=== PATIENT | female | born 1955 | race Caucasian/White ===

== ENCOUNTER 2020-07-18 15:55 | Observation (INO) | payer MEDICARE, BC ==
[2020-07-18 16:22] LABS: HEMOGLOBIN A1C 7.6 % (4.8-5.6)
[2020-07-18 16:30] LABS: CHLORIDE,CL 97 mEq/L (98-106); SODIUM,NA 136 mEq/L (136-145)
[2020-07-18] MEDS ORDERED: Ondansetron 4 MG Tab.DIS PO PRN (17:12)
[2020-07-18] MEDS ORDERED: Sodium Chloride 0.9% 10 ML Syringe FLUSH PRN (17:12)
[2020-07-18] MEDS ORDERED: Ondansetron 4 MG/2 ML SDV IV PRN (17:12)
[2020-07-18] MEDS ORDERED: Insulin Lispro 100 Units/ML 3 ML Vial SUBCUT SCH (17:30)
[2020-07-18] MEDS: Sodium Chloride 0.9% 1,000 ML IV SCH (18:01)
[2020-07-18] MEDS: Acetaminophen 325 MG Tab PO PRN (19:54)
[2020-07-18] MEDS: Insulin Glarg,Human.Rec.Analog 100 Unit/ML SUBCUT SCH (21:15)
[2020-07-18] MEDS ORDERED: PRAVASTATIN 40 MG PO SCH (21:30)
[2020-07-18] MEDS: Ibuprofen 200 MG Tab PO PRN (22:17)
[2020-07-19] MEDS: Acetaminophen 325 MG Tab PO PRN (00:39)
[2020-07-19] MEDS: Sodium Chloride 0.9% 1,000 ML IV SCH ×2 (02:12→09:39)
[2020-07-19] MEDS: Ibuprofen 200 MG Tab PO PRN (07:54)
[2020-07-19] MEDS ORDERED: HYDROCHLOROTHIAZIDE PO SCH (08:00)
[2020-07-19] MEDS ORDERED: BISOPROLOL PO SCH (08:00)
[2020-07-19] MEDS ORDERED: PRAVASTATIN 40 MG PO SCH (08:00)
[2020-07-19] MEDS ORDERED: Simvastatin 10 MG Tab PO SCH (08:00)
[2020-07-19] MEDS ORDERED: Non-Formulary Medication 1 Each (Insulin Aspart [Novolog] 10 UNITS) SQ SCH (08:00)
--- NOTE | 2020-07-19 08:48 | PCM.PN ---
- General Info Date of Service: 07/19/20 Admission Dx/Problem (Free Text): Margi is a 64 yo female who was admitted to the hospital yesterday evening with left low back pain and elevated creatinine level. No H&P is in chart at this time. However, patient states she did have back discomfort starting last week and has been present since. States she started to have nausea and vomiting over the weekend. States she also started having diarrhea over the weekend as well. Denies any recent antibiotic use. Admits she did see chiropractor on two occasions since onset and didn't see any relief. States she has been alternating 500mg of Tylenol with 400mg of ibuprofen every 2 hours since onset. States it did help with the pain. States she didn't eat much the last few days as she had a decreased appetite and felt she would just throw it up. Admits she has not been drinking a lot but was able to keep a sprite down last night. No diarrhea since admission. No vomiting. Patient states she did have uterine cancer 5 years ago and has been clear since. States she did have a PET scan this fall and everything looked good. Questions if the scar tissue from surgery could be causing some problems. Subjective Update: Patient states today she is feeling a lot better. States nurse did tap on her back this morning and had extreme pain only on the left side. States since then she doesn't have any discomfort at this time. Has been able to eat some breakfast and is working on increasing fluid intake. Functional Status: Reports: Pain Controlled, Tolerating Diet, Ambulating, Urinating. Denies: New Symptoms - Review of Systems General: Reports: Fever, Fatigue HEENT: Reports: No Symptoms Pulmonary: Reports: No Symptoms Cardiovascular: Reports: No Symptoms Gastrointestinal: Denies: Abdominal Pain, Constipation, Diarrhea, Hematochezia, Melena, Nausea, Vomiting Genitourinary: Reports: Flank Pain. Denies: Dysuria Musculoskeletal: Reports: No Symptoms Skin: Reports: No Symptoms Neurological: Reports: No Symptoms - Patient Data Vitals - Most Recent: Last Vital Signs Temp 100.3 F 07/19/20 07:54 Pulse 62 07/19/20 04:35 Resp 16 07/19/20 04:35 BP 105/49 L 07/19/20 04:35 Pulse Ox 97 07/19/20 04:35 Weight - Most Recent: 233 lb I&O - Last 24 Hours: Intake & Output 07/18/20 07/19/20 07/19/20 22:59 06:59 14:59 Intake Total 400 1300 Output Total 250 200 Balance 150 1100 Lab Results Last 24 Hours: Laboratory Results - last 24 hr 07/18/20 07/18/20 07/18/20 Range/Units 16:05 16:05 16:05 WBC 6.2 (5.0-10.0) 10^3/uL RBC 4.36 (4.00-5.50) 10^6/uL Hgb 13.1 (12.0-16.0) g/dL Hct 39.8 (37.0-47.0) % MCV 91.3 (82.0-94.0) fL MCH 30.0 (27.0-32.0) pg MCHC 32.9 L (33.0-38.0) g/dL RDW Coeff of Charan 13.0 (11.0-15.0) % Plt Count 261 (150-400) 10^3/uL Neut % (Auto) 76.7 (35-85) % Lymph % (Auto) 13.8 (10-55) % [place] % (Auto) 8.9 (0-16) % Eos % (Auto) 0.3 (0-5) % Baso % (Auto) 0.3 (0-3) % Neut # (Auto) 4.74 (1.80-7.00) 10^3/uL Lymph # (Auto) 0.85 L (1.00-4.80) 10^3/uL [place] # (Auto) 0.55 (0.00-0.80) 10^3/uL Eos # (Auto) 0.02 (0.00-0.45) 10^3/uL Baso # (Auto) 0.02 10^3/uL Sodium 136 (136-145) mEq/L Potassium 3.9 (3.5-5.0) mEq/L Chloride 97 L (98-106) mEq/L Carbon Dioxide 28 (21-32) mmol/L BUN 33 H (7-18) mg/dL Creatinine 2.6 H* D (0.6-1.0) mg/dL Est Cr Clr Drug Dosing TNP Estimated GFR (MDRD) 18 L (>=60) mL/min Glucose 274 H D (75-99) mg/dL POC Glucose (75-105) mg/dl Hemoglobin A1c 7.6 H (4.8-5.6) % Lactic Acid (0.4-2.0) mmol/L Calcium 9.2 (8.4-10.1) mg/dL Total Bilirubin (0.0-1.0) mg/dL AST (15-37) U/L ALT (12-78) U/L Alkaline Phosphatase (46-116) U/L C-Reactive Protein 22.0 H (0.2-0.8) mg/dL Total Protein (6.4-8.2) g/dL Albumin (3.4-5.0) g/dL 07/18/20 07/18/20 07/18/20 Range/Units 16:05 17:44 21:10 WBC (5.0-10.0) 10^3/uL RBC (4.00-5.50) 10^6/uL Hgb (12.0-16.0) g/dL Hct (37.0-47.0) % MCV (82.0-94.0) fL MCH (27.0-32.0) pg MCHC (33.0-38.0) g/dL RDW Coeff of Charan (11.0-15.0) % Plt Count (150-400) 10^3/uL Neut % (Auto) (35-85) % Lymph % (Auto) (10-55) % [place] % (Auto) (0-16) % Eos % (Auto) (0-5) % Baso % (Auto) (0-3) % Neut # (Auto) (1.80-7.00) 10^3/uL Lymph # (Auto) (1.00-4.80) 10^3/uL [place] # (Auto) (0.00-0.80) 10^3/uL Eos # (Auto) (0.00-0.45) 10^3/uL Baso # (Auto) 10^3/uL Sodium (136-145) mEq/L Potassium (3.5-5.0) mEq/L Chloride (98-106) mEq/L Carbon Dioxide (21-32) mmol/L BUN (7-18) mg/dL Creatinine (0.6-1.0) mg/dL Est Cr Clr Drug Dosing Estimated GFR (MDRD) (>=60) mL/min Glucose (75-99) mg/dL POC Glucose 237 H 111 H (75-105) mg/dl Hemoglobin A1c (4.8-5.6) % Lactic Acid 1.5 (0.4-2.0) mmol/L Calcium (8.4-10.1) mg/dL Total Bilirubin (0.0-1.0) mg/dL AST (15-37) U/L ALT (12-78) U/L Alkaline Phosphatase (46-116) U/L C-Reactive Protein (0.2-0.8) mg/dL Total Protein (6.4-8.2) g/dL Albumin (3.4-5.0) g/dL 07/19/20 07/19/20 07/19/20 Range/Units 06:55 06:55 07:45 WBC 8.3 (5.0-10.0) 10^3/uL RBC 3.89 L (4.00-5.50) 10^6/uL Hgb 11.9 L (12.0-16.0) g/dL Hct 36.1 L (37.0-47.0) % MCV 92.8 (82.0-94.0) fL MCH 30.6 (27.0-32.0) pg MCHC 33.0 (33.0-38.0) g/dL RDW Coeff of Charan 13.2 (11.0-15.0) % Plt Count 217 (150-400) 10^3/uL Neut % (Auto) 76.1 (35-85) % Lymph % (Auto) 9.7 L (10-55) % [place] % (Auto) 13.2 (0-16) % Eos % (Auto) 0.8 (0-5) % Baso % (Auto) 0.2 (0-3) % Neut # (Auto) 6.30 (1.80-7.00) 10^3/uL Lymph # (Auto) 0.80 L (1.00-4.80) 10^3/uL [place] # (Auto) 1.09 H (0.00-0.80) 10^3/uL Eos # (Auto) 0.07 (0.00-0.45) 10^3/uL Baso # (Auto) 0.02 10^3/uL Sodium 139 (136-145) mEq/L Potassium 4.0 (3.5-5.0) mEq/L Chloride 100 (98-106) mEq/L Carbon Dioxide 27 (21-32) mmol/L BUN 30 H (7-18) mg/dL Creatinine 2.4 H (0.6-1.0) mg/dL Est Cr Clr Drug Dosing 22.73 Estimated GFR (MDRD) 20 L (>=60) mL/min Glucose 131 H D (75-99) mg/dL POC Glucose 132 H (75-105) mg/dl Hemoglobin A1c (4.8-5.6) % Lactic Acid (0.4-2.0) mmol/L Calcium 8.6 (8.4-10.1) mg/dL Total Bilirubin 0.4 (0.0-1.0) mg/dL AST 51 H (15-37) U/L ALT 72 (12-78) U/L Alkaline Phosphatase 287 H (46-116) U/L C-Reactive Protein 20.9 H (0.2-0.8) mg/dL Total Protein 7.3 (6.4-8.2) g/dL Albumin 2.4 L (3.4-5.0) g/dL Med Orders - Current: Current Medications Acetaminophen (Tylenol) 650 mg PO Q4H PRN PRN Reason: Pain (Mild 1-3)/fever Last Admin: 07/19/20 00:39 Dose: 650 mg Documented by: Sodium Chloride (Normal Saline) 1,000 mls @ 125 mls/hr IV ASDIRECTED [facility] Last Admin: 07/19/20 02:12 Dose: 125 mls/hr Documented by: Ibuprofen (Motrin) 400 mg PO Q6H PRN PRN Reason: Fever Last Admin: 07/19/20 07:54 Dose: 400 mg Documented by: Insulin Glargine (Lantus) 60 unit SUBCUT BID [facility] Last Admin: 07/18/20 21:15 Dose: Not Given Documented by: Insulin Human Lispro (Humalog) 15 unit SUBCUT DAILY@1730 [facility] Last Admin: 07/18/20 17:58 Dose: 15 units Documented by: Insulin Human Lispro (Humalog) 10 unit SUBCUT BID@0800,1200 [facility] Ondansetron HCl (Zofran Odt) 4 mg PO Q4H PRN PRN Reason: nausea, able to take PO Ondansetron HCl (Zofran) 4 mg IV Q4H PRN PRN Reason: Nausea/Vomiting Bisoprolol/Hydrochlorothiazide 10-6.25 Mg *Pt Own Med* 1 each PO DAILY [facility] Last Admin: 07/19/20 07:49 Dose: 1 each Documented by: Pravastatin 40 Mg (Tab *Pt Own Med*) 0 each PO BEDTIME [facility] Last Admin: 07/18/20 21:24 Dose: 0.5 each Documented by: Sodium Chloride (Saline Flush) 10 ml FLUSH ASDIRECTED PRN PRN Reason: Keep Vein Open Discontinued Medications Non-Formulary Medication (Insulin Aspart [Novolog]) 10 units SQ 0800,1200 [facility] Pravastatin 40 Mg (Tab *Pt Own Med*) 0 each PO DAILY [facility] Simvastatin (Zocor) 10 mg PO DAILY [facility] - Exam General: Alert, Oriented, Cooperative, No Acute Distress (sitting comfortably in chair. ) Lungs: Clear to Auscultation, Normal Respiratory Effort Cardiovascular: Regular Rate, Regular Rhythm, No Murmurs GI/Abdominal Exam: Normal Bowel Sounds, Soft, Non-Tender, No Organomegaly Back Exam: No: CVA Tenderness (L), CVA Tenderness (R), Decreased Range of Motion, Muscle Spasm, Paraspinal Tenderness, Vertebral Tenderness Extremities: Normal Inspection, Non-Tender, No Pedal Edema Skin: Warm, Dry, Intact Psy/Mental Status: Alert, Normal Affect, Normal Mood Sepsis Event Note - Evaluation Sepsis Screening Result: No Definite Risk - Focused Exam Vital Signs: Vital Signs Temp Temp Pulse Resp BP Pulse Ox 07/19/20 07:54 100.3 F 07/19/20 04:35 96.6 F L 62 16 105/49 L 97 07/19/20 02:05 97.7 F 07/19/20 00:30 100.4 F 71 16 118/52 L 95 07/18/20 23:15 100.4 F 07/18/20 22:17 101.4 F H 07/18/20 22:15 101.4 F H 07/18/20 21:10 101.9 F H - Problem List & Annotations (1) Acute left flank pain SNOMED Code(s): 458697969, 648463703 Code(s): R10.9 - UNSPECIFIED ABDOMINAL PAIN Status: Acute Current Visit: Yes (2) Acute diarrhea SNOMED Code(s): 022998462 Code(s): R19.7 - DIARRHEA, UNSPECIFIED Status: Acute Current Visit: Yes (3) Fever SNOMED Code(s): 692574586 Code(s): R50.9 - FEVER, UNSPECIFIED Status: Acute Current Visit: Yes (4) High creatinine SNOMED Code(s): 565047055, 409309826 Code(s): R79.89 - OTHER SPECIFIED ABNORMAL FINDINGS OF BLOOD CHEMISTRY Status: Acute Current Visit: Yes - Problem List Review Problem List Initiated/Reviewed/Updated: Yes - My Orders Last 24 Hours: My Active Orders 07/19/20 08:39 Abdomen Pelvis wo Cont [CT] Routine UA RFX MICHELLE AND CULT IF INDIC [URIN] Routine 07/19/20 08:40 CULTURE BLOOD [BC] Stat CULTURE BLOOD [BC] Stat Blood Culture x2 Reflex Set [OM.PC] Stat - Plan Plan:: 07/19/2020 Patient appears to be feeling better this morning. Patient currently doesn't have any flank pain since nurse checked for CVA tenderness, again states when she did it she had excruciating pain but gone since. Creatinine did slightly improve today to 2.4. After reviewing the chart, patient does have a history of renal calculus in 2015. Will get CT of the abdomen/pelvis today. No urinalysis ordered and will get today as well. Patient did have fevers through out the night and has been controlled with Tylenol and ibuprofen. After reviewing medications, will hold ibuprofen today since patient is presently afebrile. Blood cultures obtained. WBC is normal but CRP is elevated. Will consult with Dr. Guzman to see if one dose of IV antibiotics should be given.
[2020-07-19] MEDS: Insulin Lispro 100 Units/ML 3 ML Vial SUBCUT SCH ×2 (08:52→11:22)
[2020-07-19] MEDS: Insulin Glarg,Human.Rec.Analog 100 Unit/ML SUBCUT SCH (08:52)
[2020-07-19] MEDS ORDERED: cefTRIAXone 1 GM Vial IVPUSH STA (09:40)
[2020-07-19] MEDS ORDERED: Tamsulosin 0.4 MG Cap.ER PO SCH (11:15)
[2020-07-19 11:35] VITALS: BP 109/67; PULSE 58
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
[2020-07-19] MEDS ORDERED: fentaNYL 100 MCG/2 ML SDV IVPUSH ONE (13:22)
[2020-07-19] MEDS ORDERED: Enoxaparin 30 MG/0.3 ML Syringe SUBCUT SCH (20:00)
== END 2020-07-19 13:40 ==
LOC: CC.FCMC 15:55 → UNDOADMIN 16:49 → CC.MS 16:49 → UNDOADMOB 16:49 → INTOOBSV 16:49 → UNDOADMOB 17:12 → CC.MS 17:12
PROVIDERS: ADMIT Physician Assistant Medical; ATTEND Family Medicine
DX: R19.7 Diarrhea, unspecified (principal); R50.9 Fever, unspecified; R11.2 Nausea with vomiting, unspecified; N17.9 Acute kidney failure, unspecified; E86.0 Dehydration; N13.9 Obstructive and reflux uropathy, unspecified; N12 Tubulo-interstitial nephritis, not specified as acute or chronic; R79.89 Other specified abnormal findings of blood chemistry; Z88.8 Allergy status to other drugs, medicaments and biological substances; Z88.5 Allergy status to narcotic agent; Z88.2 Allergy status to sulfonamides; Z79.899 Other long term (current) drug therapy; Z98.890 Other specified postprocedural states
CPT/HCPCS: 36415; 74176; 80048; 80053; 81001; 82962; 83036; 83605; 85025; 86140; 87040; 87086; 96374; 96375; A9270; G0378; J0696; J1815; J3010; J7030

== ENCOUNTER 2023-05-31 13:46 | Observation (INO) | payer MEDICARE, BC ==
[2023-05-31] MEDS ORDERED: Sodium Chloride 0.9% 1,000 ML IV STA (13:54)
[2023-05-31] MEDS ORDERED: Ondansetron 4 MG/2 ML SDV IVPUSH STA (13:54)
[2023-05-31 14:25] LABS: BASOPHILS ABSOLUTE AUTO 0.02 10^3/uL (0.00-0.50); BASOPHILS PERCENT AUTO 0.2 % (0-1); EOSINOPHILS ABSOLUTE AUTO 0.01 10^3/uL (0.00-1.50); EOSINOPHILS PERCENT AUTO 0.1 % (0-6); HEMATOCRIT 39.1 % (37.0-47.0); HEMOGLOBIN 13.6 g/dL (12.0-16.0); IMMATURE GRAN ABSOLUTE AUTO 0.01 10^3/uL (0.00-0.49); IMMATURE GRAN PERCENT AUTO 0.1 % (0.0-4.9); LYMPHOCYTES ABSOLUTE AUTO 0.57 10^3/uL (0.60-5.00); LYMPHOCYTES PERCENT AUTO 4.7 % (24-44); MEAN CORPUSCULAR HEMOGLOBIN 31.3 pg (27.0-32.0); MEAN CORPUSCULAR HGB CONC 34.8 g/dL (32.0-36.0); MEAN CORPUSCULAR VOLUME 89.9 fL (83.0-97.0); MONOCYTES ABSOLUTE AUTO 0.69 10^3/uL (0.00-1.50); MONOCYTES PERCENT AUTO 5.7 % (0-10); NEUTROPHILS PERCENT AUTO 89.2 % (41-71); PLATELET COUNT,PLT 261 10^3/uL (150-400); RED BLOOD CELL COUNT 4.35 x10^6/uL (4.00-5.50); WHITE BLOOD CELL COUNT,WBC 12.2 10^3/uL (4.0-11.0)
[2023-05-31 14:38] LABS: ALANINE AMINOTRANSFERASE,ALT 24 U/L (12-78); ALBUMIN 3.4 g/dL (3.4-5.0); ALKALINE PHOSPHATASE 115 U/L (46-116); ASPARTATE AMNIOTRANSFERASE,AST 18 U/L (15-37); BILIRUBIN TOTAL 0.6 mg/dL (0.0-1.0); BLOOD UREA NITROGEN,BUN 29 mg/dL (7-18); CALCIUM 9.2 mg/dL (8.4-10.1); CARBON DIOXIDE,CO2 28 mmol/L (21-32); CHLORIDE,CL 100 mEq/L (98-106); CREATININE 1.8 mg/dL (0.6-1.0); GLUCOSE RANDOM 239 mg/dL (75-99); MAGNESIUM 1.6 mg/dL (1.8-2.4); POTASSIUM,K 3.9 mEq/L (3.5-5.0); PROTEIN TOTAL,TP 7.3 g/dL (6.4-8.2); SODIUM,NA 138 mEq/L (136-145)
[2023-05-31 14:39] LABS: APPEARANCE,URINE SLIGHTLY CLOUDY (CLEAR); BILIRUBIN,URINE NEGATIVE (NEGATIVE); COLOR,URINE YELLOW (YELLOW); GLUCOSE,URINE 100 mg/dL (NEGATIVE); KETONES,URINE TRACE mg/dL (NEGATIVE); LEUKOCYTE ESTERASE,URINE TRACE (NEGATIVE); NITRITE,URINE NEGATIVE (NEGATIVE); OCCULT BLOOD,URINE MODERATE (NEGATIVE); PH,URINE 5.5 (4.5-8.0); PROTEIN,URINE 30 mg/dL (NEGATIVE); UROBILINOGEN,URINE 0.2 EU/dL (0.2-1.0)
[2023-05-31 14:41] LABS: ESTIMATED GFR 30 mL/min (>=60)
[2023-05-31] MEDS ORDERED: Ketorolac 30 MG/ML SDV IVPUSH ONE (14:46)
[2023-05-31 14:47] LABS: BACTERIA,URINE MODERATE /HPF (NOT SEEN); EPITHELIAL CELLS,URINE MODERATE /HPF (NOT SEEN); WBC CLUMPS,URINE FEW /HPF (NOT SEEN); WBC,URINE 30-40 /HPF (0-5)
[2023-05-31] MEDS ORDERED: Polyethylene Glycol 3350 Powder 17 GM Packet PO PRN (15:47)
[2023-05-31] MEDS ORDERED: Promethazine 12.5 MG in Sodium Chloride 0.9% 50 ML IV PRN (15:47)
[2023-05-31] MEDS ORDERED: Docusate Sodium 100 MG Cap PO PRN (15:47)
[2023-05-31] MEDS ORDERED: Tamsulosin 0.4 MG Cap.ER PO ONE (15:47)
[2023-05-31] MEDS ORDERED: Ondansetron 4 MG Tab.DIS PO PRN (15:47)
[2023-05-31] MEDS ORDERED: Acetaminophen/oxyCODONE 325-5 MG Tab PO PRN (15:47)
[2023-05-31] MEDS ORDERED: Ondansetron 4 MG/2 ML SDV IV PRN (15:47)
[2023-05-31] MEDS ORDERED: Lactated Ringers 1,000 ML IV STA (15:47)
[2023-05-31] MEDS ORDERED: Insulin Lispro 100 Units/ML 3 ML Vial SUBCUT SCH (17:30)
[2023-05-31] MEDS: Insulin Glarg,Human.Rec.Analog 100 Unit/ML 10 ML Vial SUBCUT SCH (19:20)
[2023-06-01] MEDS: Ketorolac 30 MG/ML SDV IVPUSH PRN ×2 (02:04→07:15)
[2023-06-01] MEDS ORDERED: Acetaminophen 325 MG Tab PO PRN (04:09)
[2023-06-01] MEDS ORDERED: cefTRIAXone 1 GM Vial IVPUSH ONE ×2 (07:04→09:02)
[2023-06-01] MEDS ORDERED: Lactated Ringers 1,000 ML IV SCH (07:30)
[2023-06-01 07:52] VITALS: BP 129/42; PULSE 98
[2023-06-01] MEDS ORDERED: Simvastatin 10 MG Tab PO SCH (08:00)
[2023-06-01] MEDS ORDERED: Insulin Lispro 100 Units/ML 3 ML Vial SUBCUT SCH (08:00)
[2023-06-01] MEDS ORDERED: Bisoprolol 5 MG Tab PO SCH (08:00)
[2023-06-01 08:26] LABS: CALCIUM 8.8 mg/dL (8.4-10.1); CREATININE 2.3 mg/dL (0.6-1.0); EST CRCL DRUG DOSING (CG) 22.76 mL/min; MAGNESIUM 1.4 mg/dL (1.8-2.4); POTASSIUM,K 3.2 mEq/L (3.5-5.0)
[2023-06-01] MEDS ORDERED: Magnesium Sulfate/Water 2 GM in Premix Bag 1 BAG IV ONE (08:38)
[2023-06-01] MEDS ORDERED: Potassium Chloride Riders 20 MEQ in Premix Bag 1 BAG IV ONE (08:40)
[2023-06-01 08:57] LABS: HEMATOCRIT 36.6 % (37.0-47.0); HEMOGLOBIN 12.4 g/dL (12.0-16.0); MEAN CORPUSCULAR HEMOGLOBIN 31.2 pg (27.0-32.0); MEAN CORPUSCULAR HGB CONC 33.9 g/dL (32.0-36.0); MEAN CORPUSCULAR VOLUME 92.2 fL (83.0-97.0); PLATELET COUNT,PLT 143 10^3/uL (150-400); RED BLOOD CELL COUNT 3.97 x10^6/uL (4.00-5.50)
[2023-06-01] MEDS ORDERED: NS + KCl 20mEq/L 1,000 ML IV STA (08:58)
[2023-06-01 08:59] LABS: WHITE BLOOD CELL COUNT,WBC 1.4 10^3/uL (4.0-11.0)
[2023-06-01 08:59] LABS: CORONAVIRUS COVID-19 NAA NEGATIVE (NEGATIVE); INFLUENZA A NAA NEGATIVE (NEGATIVE); INFLUENZA B NAA NEGATIVE (NEGATIVE)
[2023-06-01] MEDS: Sodium Chloride 0.9% 1,000 ML IV ONE ×2 (09:25→09:48)
[2023-06-01 09:43] LABS: LYMPHOCYTES ABSOLUTE MAN 0.28 10^3/uL (1.00-4.80); LYMPHOCYTES PERCENT MAN 20 % (21-55); MONOCYTES ABSOLUTE MAN 0.11 10^3/uL (0.00-0.80); MONOCYTES PERCENT MAN 8 % (2-12); NEUTROPHILS ABSOLUTE MAN 1.01 10^3/uL (1.80-7.00); SEG NEUTROPHILS PERCENT MAN 72 % (35-85)
[2023-06-01] MEDS: Insulin Glarg,Human.Rec.Analog 100 Unit/ML 10 ML Vial SUBCUT SCH (09:49)
[2023-06-01] MEDS ORDERED: Sodium Chloride 0.9% 1,000 ML IV ONE (09:57)
[2023-06-01] MEDS ORDERED: Sodium Chloride 0.9% 500 ML IV SCH (10:15)
== END 2023-06-01 12:00 ==
LOC: CC.ED 13:46 → UNDOADMOB 15:12 → CC.MS 15:12
PROVIDERS: ADMIT Nurse Practitioner; ATTEND Nurse Practitioner
DX: N20.1 Calculus of ureter (principal); R11.2 Nausea with vomiting, unspecified; R10.9 Unspecified abdominal pain; E87.20 Acidosis, unspecified; R50.9 Fever, unspecified; E11.9 Type 2 diabetes mellitus without complications; C85.90 Non-Hodgkin lymphoma, unspecified, unspecified site; Z20.822 Contact with and (suspected) exposure to COVID-19; Z88.8 Allergy status to other drugs, medicaments and biological substances; Z88.0 Allergy status to penicillin; Z88.2 Allergy status to sulfonamides; Z79.4 Long term (current) use of insulin; Z79.899 Other long term (current) drug therapy
CPT/HCPCS: 0240U; 36415; 74176; 80048; 80053; 81001; 82800; 82947; 83605; 83735; 85025; 87040; 87077; 87086; 87088; 87186; 96361; 96365; 96366; 96368; 96374; 96375; 96376; 99285-25; A9270-GY; G0378; J0696; J1815-GY; J1885; J2405; J3475; J3480; J7030; J7040; J7120

== ENCOUNTER 2023-10-07 20:40 | Emergency (ER) | payer MEDICARE, BC, OTHER ==
[2023-10-07 21:31] VITALS: BP 151/55; PULSE 71
== END 2023-10-07 21:24 | disposition home or self-care (01) ==
LOC: CC.ED 20:40
DX: S80.812A Abrasion, left lower leg, initial encounter (principal); S80.811A Abrasion, right lower leg, initial encounter; E11.9 Type 2 diabetes mellitus without complications; Z88.8 Allergy status to other drugs, medicaments and biological substances; Z88.0 Allergy status to penicillin; Z88.2 Allergy status to sulfonamides; Z79.4 Long term (current) use of insulin; V89.2XXA Person injured in unspecified motor-vehicle accident, traffic, initial encounter
CPT/HCPCS: 99283